=== PATIENT | female | born 1965 | race Caucasian/White ===

== ENCOUNTER 2016-05-16 17:17 | Emergency (ER) | payer SELFPAY ==
[~2016-05-16 17:17] MED LIST: ALBUTEROL SULF8.5 G1 IH; B COMPLETE1 EACH PO; B COMPLEX PO; MULTIVITAMIN1 TAB PO; NORCO 5/325 TAB1 TAB PO; PEN-VEE K500 MG PO; PHENERGAN W/CO120 ML PO; PROMETHAZINE-C118 ML PO; SYNTHROID; VITAMIN D2000 UNIT PO; ZITHROMAX250 M1 PO; ZITHROMAX250MG Z-PAK PO; [UNRECOGNIZED DRUG - OTHER] PO
[2016-05-16 18:09] LABS: BASO % 0.7 % (0-2); BASO ABSOLUTE COUNT 0.1 tho/cmm (0.0-0.2); EOS % 0.7 % (0-7); EOSINOPHIL ABSOLUTE COUNT 0.1 tho/cmm (0.0-0.7); HCT-HEMATOCRIT 36.9 % (34.0-49.0); HGB-HEMOGLOBIN 12.5 gm/dl (12.0-15.5); IMMATURE GRANULOCYTES ABSOLUTE 0.02 tho/cmm (0-0.03); IMMATURE GRANULOCYTES PERCENT 0.2 % (0-0.3); LYMPH % 24.6 % (20-45); LYMPH ABSOLUTE COUNT 2.8 tho/cmm (0.8-4.5); MCH (MEAN CORPUSCULAR HGB) 30.2 pg (28.0-32.0); MCHC MEAN CORPUSCULAR HGB CONC 33.9 % (32.0-36.0); MCV (MEAN CELL VOLUME) 89.1 fl (82.0-96.0); MEAN PLATELET VOLUME 10.2 cmc (9.4-12.4); MONO % 5.6 % (0-12); MONOCYTE ABSOLUTE COUNT 0.6 tho/cmm (0.0-1.2); NEUTROPHIL ABSOLUTE COUNT 7.8 tho/cmm (1.6-8.0); NEUTROPHIL-AUTOMATED 7.8 tho/cmm (1.6-8.0); NEUTROPHILS % 68.2 % (40-80); PLATELET COUNT 349 tho/cmm (150-450); RED BLOOD COUNT 4.14 mil/cmm (4.00-5.20); RED CELL DISTRIBUTION WIDTH 12.8 % (12.4-16.4); WHITE BLOOD COUNT 11.5 tho/cmm (4.0-10.0)
[2016-05-16 18:13] LABS: PROTHROMBIN TIME 11.2 SECONDS (9.0-13.6)
[2016-05-16 18:27] LABS: ALB/GLOB RATIO 1.3 (0.8-2.0); ALBUMIN 4.2 g/dl (3.5-5.0); ALKALINE PHOSPHATASE 73 U/L (33-138); ALT/SGPT 21 U/L (12-78); ANION GAP 15 mmol/L (0-20); AST/SGOT 20 U/L (10-40); BILIRUBIN,TOTAL 0.4 mg/dl (0-1.5); BLOOD UREA NITROGEN 16 mg/dl (6-24); CALCIUM 9.3 mg/dl (8.5-10.5); CARBON DIOXIDE-VENOUS 24 mmol/L (22-32); CHLORIDE 103 mmol/l (96-110); GLUCOSE 77 mg/dL (70-110); POTASSIUM 4.1 mmol/L (3.7-5.1); SODIUM 138 mmol/L (135-145); eGFR VALUE FOR BLACK 74 mL/Min
[2016-05-16] MEDS ORDERED: DELTASONE20 MG PO (21:37)
[2016-05-16] MEDS ORDERED: VIBRAMYCIN100 M1 PO (21:37)
== END 2016-05-16 21:56 ==
LOC: EDMED 17:17
PROVIDERS: Family Medicine
DX: J20.9 Acute bronchitis, unspecified (principal); Z90.710 Acquired absence of both cervix and uterus; F17.210 Nicotine dependence, cigarettes, uncomplicated
CPT/HCPCS: J2930

== ENCOUNTER 2016-08-15 09:11 | Emergency (ER) | payer SELFPAY ==
[~2016-08-15 09:11] MED LIST changes: +DELTASONE20 MG PO; +VIBRAMYCIN100 M1 PO
[2016-08-15] MEDS ORDERED: NORCO 5-325 TA1 EACH PO (11:41)
== END 2016-08-15 12:04 ==
LOC: EDMED 09:11
DX: M25.561 Pain in right knee (principal); E07.9 Disorder of thyroid, unspecified; F17.200 Nicotine dependence, unspecified, uncomplicated; Z90.710 Acquired absence of both cervix and uterus; W19.XXXA Unspecified fall, initial encounter